=== PATIENT | male | born 1990 | race Caucasian/White ===

== ENCOUNTER 2020-12-06 22:29 | Emergency (ER) | payer MEDICAID ==
[~2020-12-06] VITALS: Ht 182.9 cm; Wt 90.7 kg
[2020-12-06] MEDS ORDERED: NEURONTIN100 MG PO (22:45)
[2020-12-06 22:48] LABS: HEMATOCRIT 46.5 % (42.0-52.0); HEMOGLOBIN 16.2 gm/dL (14.0-18.0); MCH 31.7 pg (26.0-34.0); MCHC 34.9 g/dL (28.0-37.0); MPV 7.4 fl. (7.2-11.1); RBC 5.1 mil/uL (4.50-6.00); RDW-CV 13.5 % (10.5-14.5); WBC 13.5 thou/uL (4.0-11.0)
[2020-12-06 22:55] LABS: CALCIUM 8.3 mg/dL (8.5-10.1); POTASSIUM 3.5 mmol/L (3.5-5.1)
[2020-12-06 22:56] LABS: AMP/METHAMP Negative (Negative); BARBITURATES Negative (Negative); BENZODIAZEPINES Negative (Negative); COCAINE Negative (Negative); METHADONE Negative (Negative); OPIATES Negative (Negative); PCP Negative (Negative); THC POSITIVE (Negative)
[2020-12-06 23:00] LABS: ALBUMIN 3.7 g/dL (3.4-5.0); TOTAL BILIRUBIN 0.3 mg/dL (<0.1-1.0)
[2020-12-06 23:10] LABS: URINE BILIRUBIN NEGATIVE (Negative); URINE BLOOD TRACE (Negative); URINE CLARITY CLEAR; URINE COLOR YELLOW; URINE GLUCOSE-RANDOM NEGATIVE (Negative); URINE KETONES TRACE (Negative); URINE LEUKOCYTES-REFLEX NEGATIVE (Negative); URINE NITRITE-REFLEX NEGATIVE (Negative); URINE PROTEIN NEGATIVE (Negative); URINE SPECIFIC GRAVITY 1.025 (1.005-1.030); URINE UROBILINOGEN 0.2 E.U./dl (0.2-1.0)
[2020-12-07 00:29] VITALS: BP 136/79
== END 2020-12-07 00:29 | disposition home or self-care (01) ==
LOC: M.ERS 22:29
PROVIDERS: Personal Emergency Response Attendant
DX: N39.0 Urinary tract infection, site not specified (principal); F20.9 Schizophrenia, unspecified; Z79.899 Other long term (current) drug therapy

== ENCOUNTER 2020-12-14 20:33 | Emergency (ER) | payer MEDICAID ==
[~2020-12-14] VITALS: Ht 182.9 cm; Wt 90.7 kg
[~2020-12-14 20:33] MED LIST: NEURONTIN100 MG PO
[2020-12-14 21:50] VITALS: BP 109/69
== END 2020-12-14 21:50 | disposition home or self-care (01) ==
LOC: M.ERS 20:33
DX: R53.83 Other fatigue (principal); H92.01 Otalgia, right ear; R09.89 Other specified symptoms and signs involving the circulatory and respiratory systems; R09.81 Nasal congestion

== ENCOUNTER 2021-01-03 19:58 | Emergency (ER) | payer MEDICAID ==
[~2021-01-03] VITALS: Ht 182.9 cm; Wt 90.7 kg
[2021-01-03 20:21] VITALS: BP 146/86
[2021-01-03] MEDS ORDERED: PSYCH MED IM (20:27)
== END 2021-01-03 22:50 | disposition left against medical advice (07) ==
LOC: M.ERS 19:58
DX: F54 Psychological and behavioral factors associated with disorders or diseases classified elsewhere (principal); Z53.21 Procedure and treatment not carried out due to patient leaving prior to being seen by health care provider